=== PATIENT | female | born 1960 | race Caucasian/White ===

== ENCOUNTER → 2016-07-25 | Outpatient (CLI) | payer BC ==
[~2016-07-25] MED LIST: CEFTIN250 MG PO; COLACE-DPS100 MG PO; CONCERTA36 MG PO; COUMADIN5 MG PO; DELTASONE DPS10 MG PO; DUONEB DPS3 ML IH; HABITROL DPS21 MG TP; KLONOPIN DPS1 MG PO; KLONOPIN2 MG PO; LASIX DPS40 MG PO; MICRO-K DPS10 MEQ PO; MILK OF MAGNESI10 ML PO; MIRALAX PACKET17 GM PO; MS CONTIN DPS15 MG PO; PAXIL DPS20 MG PO; PERCOCET 5-3251 EACH PO; PRILOSEC DPS20 MG PO; REGLAN-DPS10 MG PO; SENOKOT DPS8.6 MG PO; WELLBUTRIN75 MG PO
== END | disposition home or self-care (01) ==
LOC: RAD.S 13:30
DX: Z12.31 Encounter for screening mammogram for malignant neoplasm of breast (principal); Z98.82 Breast implant status